=== PATIENT | male | born 1930 | race Caucasian/White ===

== ENCOUNTER 2017-11-03 15:39 | Inpatient (IN) | payer MEDICARE, OTHER ==
[~2017-11-03] VITALS: Ht 165.1 cm; Wt 59.0 kg
--- NOTE | 2017-11-03 15:50 | NUR ---
[facility] PRIVATE EMS FROM [facility] FOR NON HEALING WOUND TO RIGHT HAND. PATIENT IS A/OX 2. BREATHING EVEN AND UNLABORED. NO SOB, NAD, VITALS STABLE. SAFETY AND COMFORT MEASURES IN PLACE. AWAITING MD ORDERS.
--- NOTE | 2017-11-03 16:23 | NUR ---
DR JOSEFA LOPEZ CALLED AT [phone],SPOKE WITH DR ALCALA
--- NOTE | 2017-11-03 16:30 | NUR ---
NEW IV STARTED ON LAC, 18G. BLOOD DRAWN AND SENT TO LAB.
[2017-11-03 16:34] LABS: BASOPHILS % (AUTO) 0.6 % (0.0-2.0); EOSINOPHILS % (AUTO) 7.8 % (0.0-6.0); HEMATOCRIT 35 % (39-51); HEMOGLOBIN 11.9 g/dL (13.5-17.5); MEAN CORPUSCULAR HGB CONC 34 g/dl (31.0-36.0); MEAN CORPUSCULAR VOLUME 78 fL (80-96); MONOCYTES # (AUTO) 0.6 /CMM (0.1-1.30); MONOCYTES % (AUTO) 10.6 % (2.0-12.0); NEUTROPHILS # (AUTO) 3.4 /CMM (1.8-8.9); PLATELET COUNT (AUTO) 171 /CMM (150-450); RDW COEFFICIENT OF VARIATION 16.2 (11.5-15.0); RED BLOOD CELL COUNT(AUTO) 4.55 MIL/uL (4.5-6.0); WHITE BLOOD COUNT (AUTO) 5.4 K/uL (4.3-11.0)
[2017-11-03 16:43] LABS: CALCIUM, SERUM 8.9 mg/dL (8.5-10.1); CARBON DIOXIDE 28 mmol/L (21-32); CHLORIDE 106 mmol/L (98-107); CREATININE 0.7 mg/dL (0.6-1.3); GLUCOSE 99 mg/dL (74-106); POTASSIUM 4.2 mmol/L (3.5-5.1); SODIUM SERUM 139 mmol/L (136-145); UREA NITROGEN, BLOOD 21 mg/dL (7-18)
[2017-11-03 16:47] LABS: INR 1.06 (0.85-1.15)
[2017-11-03 16:49] LABS: ALANINE AMINOTRANSFERASE 26 U/L (12-78); ALBUMIN 2.9 g/dL (3.4-5.0); ALKALINE PHOSPHATASE 112 U/L (46-116); ASPARTATE AMINOTRANSFERASE 19 U/L (15-37); BILIRUBIN,DIRECT 0.1 mg/dL (0.0-0.2); BILIRUBIN,TOTAL 0.4 mg/dL (0.2-1.0); TOTAL PROTEIN, SERUM 7.1 g/dL (6.4-8.2)
[2017-11-03] MEDS ORDERED: MINE3.5O28 RIGHTEYE (17:10)
[2017-11-03] MEDS ORDERED: DEXT15DR6 EACHEYE (17:10)
[2017-11-03] MEDS ORDERED: ACET-868 PO (17:10)
[2017-11-03] MEDS ORDERED: LIDO30AD10 TP (17:16)
[2017-11-03] MEDS ORDERED: MEMA10TA PO (17:16)
[2017-11-03] MEDS ORDERED: OMEP20TA5 PO (17:16)
[2017-11-03] MEDS ORDERED: MELA3TAB PO (17:16)
[2017-11-03] MEDS ORDERED: MELO-105 PO (17:16)
[2017-11-03] MEDS ORDERED: INSU100V3 SQ (17:16)
[2017-11-03] MEDS ORDERED: MULT-213 PO (17:16)
[2017-11-03] MEDS ORDERED: LEVO125T8 PO (17:16)
[2017-11-03] MEDS ORDERED: DOCU250C14 PO (17:16)
--- NOTE | 2017-11-03 18:54 | NUR ---
REPORT GIVEN TO ARLINE FARRELL FOR DANNIELLE.
--- NOTE | 2017-11-03 18:55 | NUR ---
RECEIVED REPORT FROM JAMI PAN
--- NOTE | 2017-11-03 19:45 | NUR ---
PT APPEARS COMFORTABLE.
--- NOTE | 2017-11-03 19:55 | NUR ---
PT REFUSED VS CHECK AT THIS TIME. RISK AND BENEFITS EXPLAINED AT THIS TIME. PT STRONGLY REFUSED.
--- NOTE | 2017-11-03 19:58 | NUR ---
REPORT GIVEN TO JAMI RANDALL
--- NOTE | 2017-11-03 20:10 | NUR ---
PT TRANSFERRED VIA [facility].
--- NOTE | 2017-11-03 20:30 | NUR ---
MS RN NOTE: RECEIVED PATIENT FROM ER, NO ACUTE DISTRESS NOTED. BREATHING EVEN AND UNLABORED, NO SOB NOTED. IV TO LAC IN PLACE. WOUND NOTED TO RIGHT HAND NOTED TO COVER WITH GAUZE. BED LOCKED AND IN LOWEST POSITION, CALL LIGHT IN REACH. WILL CONTINUE TO MONITOR.
[2017-11-03] MEDS ORDERED: ACETAMINOPHEN 325 MG TABLET PO PRN (22:00)
[2017-11-03] MEDS ORDERED: ZOLPIDEM TARTRATE 5 MG TABLET PO PRN (22:00)
[2017-11-03] MEDS ORDERED: Z GUARD REMEDY 2 OZ OINT TP PRN (22:00)
[2017-11-03] MEDS ORDERED: MAGNESIUM HYDROXIDE 30 ML UDC PO PRN (22:00)
[2017-11-03] MEDS ORDERED: ONDANSETRON HCL/PF 4 MG/2 ML VIAL IVP PRN (22:00)
[2017-11-04] MEDS: IV NS 0.9% 1,000 ML IV PRN (05:00)
--- NOTE | 2017-11-04 06:10 | NUR ---
MS RN NOTE: PATIENT RESTING, NO ACUTE DISTRESS NOTED. BREATHING EVEN AND UNLABORED, NO SOB NOTED. IV TO LAC IN PLACE, INFUSING NS AT 75 ML/HR. BED LOCKED AND IN LOWEST POSITION, CALL LIGHT IN REACH. WILL ENDORSE TO DAY SHIFT TO CONTINUE WITH PLAN OF CARE.
[2017-11-04 07:00] LABS: BASOPHILS % (AUTO) 0.5 % (0.0-2.0); EOSINOPHILS % (AUTO) 3.7 % (0.0-6.0); HEMATOCRIT 39 % (39-51); HEMOGLOBIN 13.1 g/dL (13.5-17.5); LYMPHOCYTES # (AUTO) 1.2 /CMM (0.8-4.8); LYMPHOCYTES % (AUTO) 23.1 % (20.0-44.0); MEAN CORPUSCULAR HGB CONC 33 g/dl (31.0-36.0); MEAN CORPUSCULAR VOLUME 79 fL (80-96); MONOCYTES # (AUTO) 0.5 /CMM (0.1-1.30); MONOCYTES % (AUTO) 9.6 % (2.0-12.0); NEUTROPHILS # (AUTO) 3.3 /CMM (1.8-8.9); NEUTROPHILS % (AUTO) 63.1 % (43.0-81.0); PLATELET COUNT (AUTO) 182 /CMM (150-450); RDW COEFFICIENT OF VARIATION 17.5 (11.5-15.0); RED BLOOD CELL COUNT(AUTO) 4.98 MIL/uL (4.5-6.0); WHITE BLOOD COUNT (AUTO) 5.3 K/uL (4.3-11.0)
[2017-11-04 07:13] LABS: ALANINE AMINOTRANSFERASE 29 U/L (12-78); ALBUMIN 3.2 g/dL (3.4-5.0); ALKALINE PHOSPHATASE 124 U/L (46-116); ASPARTATE AMINOTRANSFERASE 18 U/L (15-37); BILIRUBIN,TOTAL 0.5 mg/dL (0.2-1.0); CALCIUM, SERUM 9.5 mg/dL (8.5-10.1); CARBON DIOXIDE 25 mmol/L (21-32); CHLORIDE 102 mmol/L (98-107); CREATININE 0.7 mg/dL (0.6-1.3); MAGNESIUM 2.7 mg/dL (1.8-2.4); PHOSPHORUS 2.9 mg/dL (2.5-4.9); POTASSIUM 4.2 mmol/L (3.5-5.1); SODIUM SERUM 135 mmol/L (136-145); UREA NITROGEN, BLOOD 16 mg/dL (7-18)
[2017-11-04 07:26] LABS: GLUCOSE 74 mg/dL (74-106)
[2017-11-04 07:31] LABS: CHOLESTEROL 126 mg/dL (<200); HDL CHOLESTEROL 52 mg/dL (40-60); LDL 65 mg/dL (0-99); TRIGLYCERIDES 57 mg/dL (30-150)
--- NOTE | 2017-11-04 08:00 | NUR ---
RN NOTES PATIENT A/OX2-3, ABLE TO MAKE NEEDS KNOWN, BREATHING EVEN AND UNLABORED, NO SOB NOTED, LEFT AC #18 PATENT AND FLUSHES WELL, IVF INFUSING AND TOLERATING WELL, KEPT PATIENT COMFORTABLE, NEEDS ATTENDED AND ANTICIPATED, CALL LIGHT WITHIN REACH, WILL CONTINUE TO MONITOR.
--- NOTE | 2017-11-04 08:11 | NUR ---
WOUND CARE CONSULT: PT PRESENTS WITH DRY, INTACT DRESSING TO RT HAND. PT REPORTS THAT HIS RT HAND HURTS WHEN TOUCHED. DRESSING LEFT UNDISTURBED, ONLY REINFORCED WITH KERLIX. NO DRAINAGE NOTED. HAND CONTRACTURE NOTED. DEFER TO SURGEON FOR RT HAND. PT IS INCONTINENT. ALL SKIN PROTECTION MEASURES IN PLACE AND DISCUSSED WITH NURSING STAFF. WILL SEE PRN. CURRENT JERAMY SCORE IS 13. MD IN AGREEMENT WITH PLAN OF CARE. Addendum: 11/04/17 at 0813 by EDWARD BLANCO WNDNU Amended: Links added.
[2017-11-04 08:43] VITALS: BP 127/98
[2017-11-04] MEDS: MEMANTINE HCL 5 MG TABLET PO SCH ×2 (08:59→17:05)
[2017-11-04] MEDS: MELOXICAM 7.5 MG TABLET PO SCH ×2 (08:59→17:05)
[2017-11-04] MEDS: LEVOTHYROXINE SODIUM 125 MCG TABLET PO SCH (08:59)
--- NOTE | 2017-11-04 10:30 | NUR ---
RN NOTES PATIENT REFUSED PHYSICAL THERAPY EVALUATION
--- NOTE | 2017-11-04 13:00 | NUR ---
RN Notes Patient refused adl care, offered multiple times, educated re: skin breakdown, still refused. Per patient, "i dont care, leave me alone, i just want to sleep." Patient has poor po intake, during breakfast, lunch and dinner, per patient, if he doesnt know the food, he wont eat it. Dietitian consulted.
--- NOTE | 2017-11-04 16:19 | NUR ---
RN NOTES READ TO PATIENT CONSENT FORMS FOR RIGHT FOURTH FINGER AMPUTATION TOMORROW, PATIENT SIGNED THE CONSENT FORM, AND VERBALIZED UNDERSTANDING OF RISKS AND BENEFITS.
[2017-11-04 16:20] VITALS: BP 120/79
--- NOTE | 2017-11-04 19:30 | NUR ---
RECEIVED PATIENT IN BED AWAKE, OA X 1, ABLE TO MAKE NEEDS KNOWN. NO ACUTE DISTRESS NOTED. NO SIGNS OF PAIN NOTED. IV SITE PATENT, INTACT; IVF INFUSING ORDERED. SAFETY REMINDERS GIVEN. ON LOW BED WITH BILATERAL UPPER SIDE RAILS UP. CALL LOZANO WITHIN EASY REACH. WILL CONTINUE TO MONITOR.
[2017-11-04 19:34] VITALS: BP 137/76
--- NOTE | 2017-11-04 19:35 | NUR ---
RN Notes Patient finally agreed for skin care/adls. Patient had a soft bm x1, needs attended and met, patient is in no distress, ivf infusing and tolerating well, no s/sx of pain or discomfort at this time. Patient must be NPO after midnight for procedure tomorrow. Consents signed and placed in the chart. Patient needs cardiac clearance prior to surgery, Dr. markie laurent aware. Needs attended and met, call light within reach, will endorse to [facility] shift lead for katelynn.
[2017-11-04 20:00] VITALS: BP 137/76
--- NOTE | 2017-11-04 23:00 | NUR ---
PATIENT WOULD BEND ARM AND DISRUPT FLOW OF FLUID. PATIENT REFUSED TO HAVE ANOTHER IV INSERTED INTO ANOTHER AREA. WILL CONTINUE TO MONITOR.
--- NOTE | 2017-11-05 00:28 | NUR ---
RECEIVED ORDER FOR PEAK FLOW ASSESSMENT. PT IS ASLEEP AND UNCOOPERATIVE. RN RVI AWARE OF SITUATION. WILL ENDORSE IN THE MORNING.
[2017-11-05] MEDS: IV NS 0.9% 1,000 ML IV PRN ×2 (05:43→17:59)
[2017-11-05 05:55] LABS: BASOPHILS % (AUTO) 0.6 % (0.0-2.0); HEMATOCRIT 38 % (39-51); HEMOGLOBIN 12.4 g/dL (13.5-17.5); LYMPHOCYTES # (AUTO) 1.6 /CMM (0.8-4.8); LYMPHOCYTES % (AUTO) 21.7 % (20.0-44.0); MEAN CORPUSCULAR HGB CONC 33 g/dl (31.0-36.0); MEAN CORPUSCULAR VOLUME 79 fL (80-96); MONOCYTES # (AUTO) 0.7 /CMM (0.1-1.30); MONOCYTES % (AUTO) 9.2 % (2.0-12.0); NEUTROPHILS # (AUTO) 4.7 /CMM (1.8-8.9); NEUTROPHILS % (AUTO) 65.5 % (43.0-81.0); PLATELET COUNT (AUTO) 166 /CMM (150-450); RDW COEFFICIENT OF VARIATION 17.6 (11.5-15.0); WHITE BLOOD COUNT (AUTO) 7.2 K/uL (4.3-11.0)
[2017-11-05 06:06] LABS: CALCIUM, SERUM 8.9 mg/dL (8.5-10.1); CARBON DIOXIDE 23 mmol/L (21-32); CHLORIDE 104 mmol/L (98-107); CREATININE 0.6 mg/dL (0.6-1.3); GLUCOSE 77 mg/dL (74-106); MAGNESIUM 1.7 mg/dL (1.8-2.4); PHOSPHORUS 2.8 mg/dL (2.5-4.9); POTASSIUM 3.9 mmol/L (3.5-5.1); SODIUM SERUM 137 mmol/L (136-145); UREA NITROGEN, BLOOD 19 mg/dL (7-18)
--- NOTE | 2017-11-05 06:15 | NUR ---
PATIENT ASLEEP, EASILY AROUSABLE. RESPIRATIONS EVEN. NO SIGNS OF PAIN NOTED. IVF INFUSING ORDERED. NPO SINCE MIDNIGHT. NEEDS ATTENDED. KEPT CLEAN, DRY, AND COMFORTABLE. SAFETY PRECAUTIONS AND COMFORT MEASURES IN PLACE. WILL GIVE REPORT TO DAY SHIFT FOR CONTINUITY OF CARE.
--- NOTE | 2017-11-05 07:25 | NUR ---
RN NOTES PATIENT RECEIVED AWAKE ALERT AND VERBALLY RESPONSIVE, ABLE TO MAKE NEEDS KNOWN. RESPIRATIONS EVEN AND UNLABORED, CONTINUES ON PAIN MANAGEMENT. IV ACCESS PATENT AND INTACT NO REDNESS OR INFILTRATION NOTED. PT KEPT CLEAN AND COMFORTABLE, CALL LIGHT WITHIN EASY REACH WILL CONTINUE TO MONITOR
[2017-11-05] MEDS: LEVOTHYROXINE SODIUM 125 MCG TABLET PO SCH (07:30)
[2017-11-05 08:00] VITALS: BP 126/65
[2017-11-05] MEDS ORDERED: Magnesium 1GM/D5W 100ML PREMIX 100 ML IV SCH (08:17)
[2017-11-05] MEDS: MELOXICAM 7.5 MG TABLET PO SCH ×2 (09:00→17:51)
[2017-11-05] MEDS: MEMANTINE HCL 5 MG TABLET PO SCH ×2 (09:00→17:51)
[2017-11-05 09:29] LABS: THYROID STIMULATING HORMONE 2.183 uIU/mL (0.358-3.74)
--- NOTE | 2017-11-05 10:45 | NUR ---
RN NOTES PATIENT TAKEN TO OR IN STABLE CONDITION WILL CONTINUE TO MONITOR UPON RETURN TO UNIT
[2017-11-05] MEDS ORDERED: LIDOCAINE 1%-EPI 1:100,000 20 ML VIAL ONE (10:52)
[2017-11-05] MEDS ORDERED: BUPIVACAINE 0.25% 75 MG/30 ML VIAL ONE (10:52)
--- NOTE | 2017-11-05 14:15 | NUR ---
RN NOTES PATIENT BACK FROM OR IN STABLE CONDITION, WILL CONTINUE TO MONITOR
[2017-11-05 16:00] VITALS: BP 137/87
[2017-11-05] MEDS: HYDROCODONE/APAP 10/325MG 1 EA TABLET PO PRN (17:51)
--- NOTE | 2017-11-05 19:12 | NUR ---
RN NOTES PATIENT AWAKE ALERT AND VERBALLY RESPONSIVE, ABLE TO MAKE NEEDS KNOWN. RESPIRATIONS EVEN AND UNLABORED, CONTINUES ON PAIN MANAGEMENT. IV ACCESS PATENT AND INTACT NO REDNESS OR INFILTRATION NOTED. PT KEPT CLEAN AND COMFORTABLE, CALL LIGHT WITHIN EASY REACH WILL CONTINUE TO MONITOR AND ENDORSE TO NEXT SHIFT FOR CONTINUITY OF CARE
--- NOTE | 2017-11-05 19:30 | NUR ---
RECEIVED PATIENT IN BED AWAKE, AO X 1, ABLE TO MAKE NEEDS KNOWN. NO ACUTE DISTRESS NOTED. DENIES ANY PAIN AT THIS TIME. IV SITE PATENT, INTACT; IVF INFUSING ORDERED. SAFETY REMINDERS GIVEN. ON LOW BED WITH BILATERAL UPPER SIDE RAILS UP. CALL LOZANO WITHIN EASY REACH. WILL CONTINUE TO MONITOR.
[2017-11-05 20:00] VITALS: BP 123/75
[2017-11-05 20:16] VITALS: BP 123/75
[2017-11-06] MEDS: IV NS 0.9% 1,000 ML IV PRN (06:23)
--- NOTE | 2017-11-06 06:56 | NUR ---
PATIENT ASLEEP, EASILY AROUSABLE. RESPIRATIONS EVEN. NO SIGNS OF PAIN NOTED. IVF INFUSING ORDERED. NEEDS ATTENDED. KEPT CLEAN, DRY, AND COMFORTABLE. TURNED AND REPOSITIONED Q 2 HOURS. SAFETY PRECAUTIONS AND COMFORT MEASURES IN PLACE. WILL GIVE REPORT TO DAY SHIFT FOR CONTINUITY OF CARE.
--- NOTE | 2017-11-06 07:21 | NUR ---
MS RN OPENING NOTES RECEIVED PATIENT IN BED AWAKE, ALERT AND ORIENTED X2-3. VERBALLY RESPONSIVE WITH NO C/O PAIN OR DISCOMFORTS VOICED AT THIS TIME. PT WEARING SUNGLASSES STATED THAT HE'S SENSITIVE TO LIGHT. RIGHT HAND DRESSING WITH VIKRAM WRAP BANDAGE IN PLACE, CLEAN, DRY WITH NO ACTIVE BLEEDING NOTED. ON ROOM AIR, BREATHING EVEN AND UNLABORED. IV ACCESS ON LFA #22G INTACT AND PATENT, IVF OF NS @ 75ML/HR INFUSING, WITH NO S/S OF INFILTRATION NOTED. SAFETY MEASURES IN PLACE. HOB ELEVATED. BED LOW/LOCKED WITH SIDE RAILS UP X2. CALL LIGHT AND BEDSIDE TABLE WITHIN EASILY REACH BY PT. WILL CONTINUE TO MONITOR PT ACCORDINGLY.
[2017-11-06] MEDS: LEVOTHYROXINE SODIUM 125 MCG TABLET PO SCH (07:55)
[2017-11-06 08:12] VITALS: BP 126/80
[2017-11-06] MEDS: MEMANTINE HCL 5 MG TABLET PO SCH ×2 (08:12→17:21)
[2017-11-06] MEDS: MELOXICAM 7.5 MG TABLET PO SCH ×2 (08:12→17:21)
--- NOTE | 2017-11-06 08:53 | NUR ---
RN NOTES DR GAVIN CAME AND SEEN PT WITH ORDER TO DISCONTINUE IVF AND COLLECT BLOOD FOR CBC, CMP, MG AND PHOSPHOROUS TODAY.
[2017-11-06 09:26] LABS: BASOPHILS % (AUTO) 0.3 % (0.0-2.0); EOSINOPHILS % (AUTO) 0.2 % (0.0-6.0); HEMATOCRIT 32 % (39-51); HEMOGLOBIN 10.8 g/dL (13.5-17.5); LYMPHOCYTES # (AUTO) 1.1 /CMM (0.8-4.8); LYMPHOCYTES % (AUTO) 17.6 % (20.0-44.0); MEAN CORPUSCULAR HGB CONC 33 g/dl (31.0-36.0); MEAN CORPUSCULAR VOLUME 79 fL (80-96); MONOCYTES # (AUTO) 0.7 /CMM (0.1-1.30); MONOCYTES % (AUTO) 10.6 % (2.0-12.0); NEUTROPHILS # (AUTO) 4.5 /CMM (1.8-8.9); NEUTROPHILS % (AUTO) 71.3 % (43.0-81.0); PLATELET COUNT (AUTO) 176 /CMM (150-450); RED BLOOD CELL COUNT(AUTO) 4.13 MIL/uL (4.5-6.0); WHITE BLOOD COUNT (AUTO) 6.3 K/uL (4.3-11.0)
[2017-11-06 09:40] LABS: CALCIUM, SERUM 8.7 mg/dL (8.5-10.1); CARBON DIOXIDE 24 mmol/L (21-32); CHLORIDE 107 mmol/L (98-107); CREATININE 0.7 mg/dL (0.6-1.3); GLUCOSE 86 mg/dL (74-106); POTASSIUM 3.7 mmol/L (3.5-5.1); SODIUM SERUM 139 mmol/L (136-145); UREA NITROGEN, BLOOD 18 mg/dL (7-18)
[2017-11-06 09:42] LABS: ALANINE AMINOTRANSFERASE 23 U/L (12-78); ALBUMIN 2.7 g/dL (3.4-5.0); ALKALINE PHOSPHATASE 98 U/L (46-116); ASPARTATE AMINOTRANSFERASE 17 U/L (15-37); BILIRUBIN,TOTAL 0.4 mg/dL (0.2-1.0); MAGNESIUM 2.6 mg/dL (1.8-2.4); PHOSPHORUS 2.3 mg/dL (2.5-4.9); TOTAL PROTEIN, SERUM 6.6 g/dL (6.4-8.2)
[2017-11-06] MEDS ORDERED: NEUTRA PHOS 1 POWD.PACKET NG ONE (14:30)
[2017-11-06 16:00] VITALS: BP 116/62
--- NOTE | 2017-11-06 19:00 | NUR ---
MS RN NOTES RECEIVE PT IN BED A/O X 1-2, NO S/S OF DISTRESS, SAFETY MEASURES IN PLACE, CALL LIGHT WITHIN REACH, WILL CONTINUE TO MONITOR
[2017-11-06] MEDS: HYDROCODONE/APAP 10/325MG 1 EA TABLET PO PRN (19:09)
--- NOTE | 2017-11-06 19:36 | NUR ---
MS RN CLOSING NOTES PATIENT IN BED RESTING AT MODERTAE HIGH BACKREST. A/O X2-3. VERBALLY RESPONSIVE. PT WEARS SUNGLASSES DURING VARSHA DAY. RIGHT HAND DRESSING CHANGED BY FIBER [employer]IC ASSEMBLER CHRISTIANA ALCALA THIS AFTERNOON, PHOTO TAKEN AND FILED ON CHART. ON ROOM AIR, BREATHING EVEN AND UNLABORED. IV ACCESS ON LFA #22G INTACT AND PATENT, FLUSHES EASILY. SAFETY MEASURES KEPT IN PLACE. HOB ELEVATED. BED LOW/LOCKED WITH SIDE RAILS UP X2. CALL LIGHT AND BEDSIDE TABLE WITHIN EASILY REACH BY PT. ALL NEEDS AND CARE PROVIDED WELL. ENDORSED TO LANDING SUPPORT SPECIALIST NURSE FOR DANNIELLE.
[2017-11-06 19:52] VITALS: BP 119/72
[2017-11-06 20:00] VITALS: BP 119/72
[2017-11-07] MEDS: HYDROCODONE/APAP 10/325MG 1 EA TABLET PO PRN (04:06)
--- NOTE | 2017-11-07 06:13 | NUR ---
MS RN NOTES RP UNABLE TO CONTACT DISCONNECT PHONE NUMBER PT AWARE PT BEING TRANSFER TO DIFFERENT ROOM
--- NOTE | 2017-11-07 06:19 | NUR ---
MS RN NOTES AWAKE DRINKING MILK A/O X2 HOB ELEVATED, STABLE NO S/S OF ACUTE DISTRESS OR SOB NOTED. DENIES PAIN. SLEPT WELL. TOLERATING ROOM AIR 100% RESPIRATIONS EVEN AND UNLABORED. NEEDS ATTENDED AND ANTICIPATED; AFEBRILE, KEPT CLEAN AND DRY AND COMFORTABLE. NURSING CARE RENDERED, ASSISTED REPOSITION EVERY 2 HOURS, BLE OFFLOADED. SAFETY MEASURES IN PLACE. BED LOW LOCKED SIDE RAILS UP, CALL LIGHT AND BEDSIDE TABLE WITHIN REACH. ENDORSE TO THE NEXT SHIFT POC.
--- NOTE | 2017-11-07 06:55 | NUR ---
PT TRANSFERRED TO ROOM 326-1 NO INCIDENT HAPPENED PT STABLE
--- NOTE | 2017-11-07 07:10 | NUR ---
RN NOTES PT IS LAYING DOWN IN BED, RESTING COMFORTABLY. PT ON RA, RESPIRATIONS ARE EVEN AND UNLABORED. IV ON LFA INTACT AND PATENT. NO SIGNS OF DISTRESS NOTED. SAFETY MEASURES ARE IN PLACE, CALL LIGHT IS IN REACH. WILL CONTINUE TO MONITOR.
[2017-11-07 08:00] VITALS: BP 139/84
[2017-11-07] MEDS: MEMANTINE HCL 5 MG TABLET PO SCH ×2 (08:06→16:05)
[2017-11-07] MEDS: MELOXICAM 7.5 MG TABLET PO SCH ×2 (08:06→16:05)
[2017-11-07] MEDS: LEVOTHYROXINE SODIUM 125 MCG TABLET PO SCH (08:06)
[2017-11-07] MEDS: POTASSIUM CHLORIDE 20 MEQ TAB.PRT.SR PO SCH ×2 (09:02→09:41)
[2017-11-07] MEDS: IV NS 0.9% 1,000 ML IV PRN ×2 (09:03→20:42)
[2017-11-07 16:00] VITALS: BP 124/84
--- NOTE | 2017-11-07 18:31 | NUR ---
RN NOTES PT IS LAYING DOWN IN BED, RESTING COMFORTABLY. PT ON RA, RESPIRATIONS ARE EVEN AND UNLABORED. IV ON LFA INTACT AND PATENT. ALL MEDS WERE GIVEN ORDERED AND PT NEEDS MET. PT PROVIDED WITH SKIN CARE AND WOUND CARE ON R FINGER AMPUTATION. NO SIGNS OF DISTRESS NOTED. SAFETY MEASURES ARE IN PLACE, CALL LIGHT IS IN REACH. WILL ENDORSE TO FEATHER SHAPER RN FOR CONTINUITY OF CARE.
--- NOTE | 2017-11-07 19:45 | NUR ---
RN MS OPENING NOTES RECEIVED PATIENT IN BED, AWAKE, ALERT AND ORIENTED X2. ABLE TO MAKE SIMPLE NEEDS KNOWN, RESPIRATIONS EVEN AND UNLABORED, DENIES ANY PAIN OR DISCOMFORT AT THIS TIME , IV INSERTED TO LEFT HAND 22 GAUGE INTACT AND PATENT, NO REDNESS, NO INFILTRATION PRESENT TO SITE, L FA SITE REMOVED DUE TO LEAKAGE NOTED, NO REDNESS NO INFILTRATION TO SITE, REMOVED COMPLETELY INTACT. IVF RUNNING ORDERED. DRESSING TO RIGHT FINGER INTACT AND DRY. NEEDS ATTENDED AT THIS TIME, ORIENTED TO STAFF, ROOM AND CALL LIGHT, CALL LIGHT KEPT WITHIN REACH, WILL CONTINUE TO MONITOR.
[2017-11-07 20:00] VITALS: BP 130/73
[2017-11-08] MEDS: IV NS 0.9% 1,000 ML IV PRN (04:42)
[2017-11-08] MEDS: LEVOTHYROXINE SODIUM 125 MCG TABLET PO SCH (06:40)
--- NOTE | 2017-11-08 06:50 | NUR ---
RN MS CLOSING NOTES PATIENT IN BED, AWAKE, ALERT AND ORIENTED X2. ABLE TO MAKE SIMPLE NEEDS KNOWN, RESPIRATIONS EVEN AND UNLABORED, DENIES ANY PAIN OR DISCOMFORT AT THIS TIME , IV LEFT HAND 22 GAUGE INTACT AND PATENT, NO REDNESS, NO INFILTRATION PRESENT TO SITE,IVF RUNNING ORDERED , DRESSING TO RIGHT FINGER INTACT AND DRY. NEEDS ATTENDED AT THIS TIME,PERINEAL CARE PROVIDED NOTED SKIN ON SACRAL INTACT.OFFLOADED REPOSITIONED CALL LIGHT KEPT WITHIN REACH, WILL CONTINUE TO MONITOR AND ENDORSE TO NEXT SHIFT.
--- NOTE | 2017-11-08 07:10 | NUR ---
RN INITIAL NOTES PATENT RESTING IN BED. AROUSABLE TO TOUCH AND NAME. PATIENT AOX1, CONFUSED. NONLABORED BREATHING NOTED ON ROOM AIR. DENYING PAIN AT THE MOMENT. BED IN LOWEST LOCKED POSITION. CALL LIGHT WITHIN REACH.
[2017-11-08 07:26] LABS: BASOPHILS % (AUTO) 0.6 % (0.0-2.0); EOSINOPHILS % (AUTO) 5.1 % (0.0-6.0); HEMATOCRIT 33 % (39-51); HEMOGLOBIN 10.9 g/dL (13.5-17.5); LYMPHOCYTES % (AUTO) 22.3 % (20.0-44.0); MEAN CORPUSCULAR HGB CONC 33 g/dl (31.0-36.0); MEAN CORPUSCULAR VOLUME 79 fL (80-96); MONOCYTES # (AUTO) 0.4 /CMM (0.1-1.30); MONOCYTES % (AUTO) 8.1 % (2.0-12.0); NEUTROPHILS # (AUTO) 2.8 /CMM (1.8-8.9); NEUTROPHILS % (AUTO) 63.9 % (43.0-81.0); PLATELET COUNT (AUTO) 142 /CMM (150-450); RDW COEFFICIENT OF VARIATION 17.3 (11.5-15.0); RED BLOOD CELL COUNT(AUTO) 4.17 MIL/uL (4.5-6.0); WHITE BLOOD COUNT (AUTO) 4.4 K/uL (4.3-11.0)
[2017-11-08 07:47] LABS: CALCIUM, SERUM 8.6 mg/dL (8.5-10.1); CARBON DIOXIDE 23 mmol/L (21-32); CHLORIDE 109 mmol/L (98-107); CREATININE 0.6 mg/dL (0.6-1.3); GLUCOSE 61 mg/dL (74-106); POTASSIUM 3.9 mmol/L (3.5-5.1); SODIUM SERUM 141 mmol/L (136-145); UREA NITROGEN, BLOOD 12 mg/dL (7-18)
[2017-11-08 08:00] VITALS: BP 133/71
--- NOTE | 2017-11-08 08:00 | NUR ---
ECOSYSTEM ECOLOGY PROFESSOR LEFT EYE BLINDESS RIGHT EYE CATARACT Addendum: 11/08/17 at 0940 by MITRA CORREA RN Amended: Links added.
[2017-11-08] MEDS: MEMANTINE HCL 5 MG TABLET PO SCH ×2 (08:09→16:58)
[2017-11-08] MEDS: MELOXICAM 7.5 MG TABLET PO SCH ×2 (08:09→16:58)
[2017-11-08 16:00] VITALS: BP 149/64
--- NOTE | 2017-11-08 17:16 | NUR ---
RN NOTES PUREED DIET PER ORDERS
--- NOTE | 2017-11-08 19:00 | NUR ---
RN CLOSING NOTES PATENT RESTING IN BED. AROUSABLE TO TOUCH AND NAME. PATIENT AOX1, CONFUSED. NONLABORED BREATHING NOTED ON ROOM AIR. DENYING PAIN AT THE MOMENT. WOUND TREATMENT DONE DURING SHIFT. PATIENT ENCOURAGED TO CONSUME MEALS. OFFERED JUICE AND SNACKS IN BETWEEN. KEPT CLEAN AND DRY THROUGHOUT SHIFT. REFUSING TO TURN AND REPOSITION EVERY 2 HOURS. BED IN LOWEST LOCKED POSITION. CALL LIGHT WITHIN REACH.
--- NOTE | 2017-11-08 19:20 | NUR ---
MS RN OPENING NOTE RECEIVED PATIENT IN BED, ALERT ORIENTED X1, CONFUSED, ON ROOM AIR, TOLERATING WELL. RESPIRATIONS EVEN AND UNLABORED, NO APPARENT DISTRESS OR DISCOMFORT NOTED AT THIS TIME. PATIENT DENIES PAIN AND SOB AT THIS TIME. HAS SUNGLASSES ON REFUSES TO REMOVE. PATIENT IS HARD OF HEARING. LEFT UPPER ARM IVC, 22G WITH NS RUNNING AT 125ML/HR. NO SIGN OF INFILTRATION NOTED. PATIENT WITH RIGHT RING FINGER AMPUTATION, DRESSING IN PLACE, CLEAN AND INTACT. ON PUREED DIET. INCONTINENT WITH DIAPER. KEPT CLEAN AND COMFORTABLE. SAFETY MEASURES IN PLACE, BED IN LOW LOCKED POSITION, SIDE RAILS UP X2, CALL LIGHT WITHIN EASY REACH. WILL CONTINUE TO MONITOR.
[2017-11-08 20:00] VITALS: BP 119/60
--- NOTE | 2017-11-09 06:21 | NUR ---
MS RN CLOSING NOTE PATIENT IN BED, ALERT ORIENTED X2, CONFUSED AT TIMES. ON ROOM AIR, TOLERATING WELL. RESPIRATIONS EVEN AND UNLABORED, NO APPARENT DISTRESS OR DISCOMFORT NOTED AT THIS TIME. PATIENT DENIES PAIN AND SOB AT THIS TIME. HAS DARK SUNGLASSES ON REFUSES TO REMOVE. PATIENT IS HARD OF HEARING. LEFT UPPER ARM IVC, 22G WITH NS RUNNING AT 125ML/HR. NO SIGN OF INFILTRATION NOTED. PATIENT WITH RIGHT RING FINGER AMPUTATION, DRESSING CHANGE PERFORMED, CLEAN AND INTACT. ON PUREED DIET. INCONTINENT WITH DIAPER. KEPT CLEAN AND COMFORTABLE. TURNED AND REPOSITIONED EVERY 2 HOURS. RASH OBSERVED ON RIGHT CHEST AND UPPER ABDOMEN, KEPT CLEAN AND DRY, PHOTOS TAKEN PLACED IN CHART, ALL NEEDS ATTENDED. SAFETY MEASURES IN PLACE, BED IN LOW LOCKED POSITION, SIDE RAILS UP X3, CALL LIGHT WITHIN EASY REACH. WILL ENDORSE TO AM NURSE FOR DANNIELLE.
[2017-11-09 08:00] VITALS: BP 141/77
--- NOTE | 2017-11-09 08:00 | NUR ---
m/s detailer: initial assessment received pt in bed awake, alert and oriented x 1-2 with forgetfulness and disorientation to time, place, and situation. reality orientation provided prn. no c/o pain or any discomfort. instructed to call for assistance. will continue to monitor.
[2017-11-09] MEDS: MEMANTINE HCL 5 MG TABLET PO SCH (08:21)
[2017-11-09] MEDS: LEVOTHYROXINE SODIUM 125 MCG TABLET PO SCH (08:21)
[2017-11-09] MEDS: MELOXICAM 7.5 MG TABLET PO SCH (08:21)
--- NOTE | 2017-11-09 10:30 | NUR ---
m/s system development manager: md visit seen and examined by araceli (herman) with order: to d'c pt with Discharge instructions <Follow up with PCP and plastics., Continue wound care per plastics recommendations. order acknowledged. case management making arrangement. pt made aware.
--- NOTE | 2017-11-09 11:45 | NUR ---
m/s order checker packer processer: notes lily zelaya notified, spoke to the operator helper and informed me to call back later due to rn contact and service clerks supervisor not available at this time. place a call to stacie [phone], but number has been disconnected and also place a call to jose ortiz [phone], but number has been disconnected or no longer in use and other number [phone] is working, but is a wrong number. gage (case management) made aware. per gage, left a message to marla [phone] and left a message to mehdi (son) [phone]. for pickle water pump operator at [phone].
--- NOTE | 2017-11-09 12:00 | NUR ---
m/s post closing specialist: notes rn cofferdam construction supervisor from [facility] still not available for report per metalizing machine operator.
--- NOTE | 2017-11-09 12:35 | NUR ---
m/s piercing specialist: notes rn dry starch supervisor from [facility] still not available for report per quarry equipment operator.
--- NOTE | 2017-11-09 12:55 | NUR ---
m/s communications director: neema hong) from [facility] called and report given to one of the crew.
--- NOTE | 2017-11-09 14:20 | NUR ---
m/s printing plate clerk: notes still awaiting for ambulance to picker tender helper pt. called gage (case management) and will f/u as stated.
--- NOTE | 2017-11-09 15:20 | NUR ---
m/s media marketing manager: notes ambulance here and report given to one of the crew. h/l removed with tip intact with no swelling, no redness, and no bleeding noted.
--- NOTE | 2017-11-09 15:40 | NUR ---
m/s general counselor: discharged discharged back to snf via ambulance in stable condition with all d'c papers and valuables accompanied by ambulance crew.
== END 2017-11-09 15:40 | DRG 579 ==
LOC: ER 15:44 → MEDSG2 19:57 → MED 11-07 06:25
PROVIDERS: ADMIT Nurse Practitioner Acute Care; ATTEND Nurse Practitioner Acute Care
PROC: 0X6S0Z1 Detachment at Right Ring Finger, High, Open Approach (ICD-10-PCS; principal; 2017-11-05 11:00)
DX: S61.204A Unspecified open wound of right ring finger without damage to nail, initial encounter (principal); N17.0 Acute kidney failure with tubular necrosis; R13.10 Dysphagia, unspecified; M41.9 Scoliosis, unspecified; E83.42 Hypomagnesemia; E86.0 Dehydration; D50.9 Iron deficiency anemia, unspecified; E11.9 Type 2 diabetes mellitus without complications; D63.8 Anemia in other chronic diseases classified elsewhere; E03.9 Hypothyroidism, unspecified; M19.90 Unspecified osteoarthritis, unspecified site; L08.9 Local infection of the skin and subcutaneous tissue, unspecified; X58.XXXA Exposure to other specified factors, initial encounter; Y93.9 Activity, unspecified; Y92.129 Unspecified place in nursing home as the place of occurrence of the external cause; Z79.4 Long term (current) use of insulin; R94.31 Abnormal electrocardiogram [ECG] [EKG]; I35.0 Nonrheumatic aortic (valve) stenosis
CPT/HCPCS: 36415; 71045-TC; 80048-TC; 80053-TC; 80061-TC; 80076-TC; 82306; 82728-TC; 82962-TC; 83540-TC; 83735-TC; 84100-TC; 84439-TC; 84443-TC; 85025-TC; 85730-TC; 87070-TC; 87081-TC; 87186-TC; 88305-TC; 88311-TC; 92611-TC; 93307-TC; A4606; A6402; J0690; J1100; J2405; J3475; J3490; J7030; Z7610